=== PATIENT | female | born 1955 | race African-American/Black ===

== ENCOUNTER 2021-11-12 00:54 | Observation (INO) | payer OTHER ==
[2021-11-12 01:36] VITALS: BMI 27.1
[2021-11-12] MEDS ORDERED: Nitroglycerin 0.4 MG TAB (25 Tab Bottle) SL PRN (01:45)
[2021-11-12] MEDS ORDERED: Acetaminophen 325 MG TAB PO PRN (01:45)
[2021-11-12] MEDS ORDERED: Ondansetron PF 4 MG/2 ML Vial IVP PRN (01:45)
[2021-11-12] MEDS ORDERED: Dextrose 50% Abboject 50 ML SYRINGE SLOW IVP PRN (01:49)
[2021-11-12] MEDS ORDERED: HumaLOG 300 UNITS/3 ML VIAL SC PRN ×2 (01:49)
[2021-11-12] MEDS ORDERED: Dextrose 5% in Water 1,000 ML IV PRN (01:49)
[2021-11-12] MEDS ORDERED: Potassium Chloride 20 MEQ TAB PO SCH (02:00)
[2021-11-12] MEDS ORDERED: Aspirin 325 MG TAB PO SCH (02:00)
[2021-11-12] MEDS ORDERED: Diazepam 5 MG TAB PO PRN (02:04)
[2021-11-12] MEDS: HYDROcodone/Acetaminophen 10/325 mg Tablet PO PRN ×3 (02:13→14:38)
[2021-11-12 02:15] LABS: #Basophils 0.1 thou/uL (0.0-0.2); #Eosinphils 0.2 thou/uL (0.0-0.7); #Lymphocytes 2.6 thou/uL (1.20-3.40); #Monocytes 0.6 thou/uL (0.11-0.59); #Neutrophils 3.1 thou/uL (1.40-6.50); %Basophils 1.2 % (0.0-1.0); %Eosinophils 2.9 % (0.0-10.0); %Lymphocytes 39.5 % (21.0-51.0); %Monocytes 9.4 % (0.0-10.0); Hemoglobin 13.6 g/dL (12.0-16.0); Mean Corpuscular HGB CONC 33.4 g/dL (32.0-36.0); Mean Corpuscular Hemoglobin 31.8 pg (27.0-31.0); Mean Corpuscular Volume 95.3 fL (78.0-98.0); Mean Platelet Volume 7.4 fL (7.4-10.4); Platelet Count 362 thou/uL (130-400); RBC Distribution Width 13.5 % (11.5-14.5); Red Blood Cell (RBC) Count 4.28 mill/uL (4.20-5.40); White Blood Cell (WBC) Count 6.5 thou/uL (4.8-10.8)
[2021-11-12 02:39] LABS: Troponin I Less than 0.010 ng/mL (< 0.028)
[2021-11-12 02:54] LABS: Hemoglobin A1c 5.8 % (4.0-6.0)
[2021-11-12 03:04] LABS: Anion Gap 14 mmol/L (10-20); BUN (Urea Nitrogen) 23 mg/dL (9.8-20.1); Calc. Creatinine Clearance 97 mL/min (70-130); Carbon Dioxide 27 mmol/L (23-31); Chloride 102 mmol/L (98-107); Glucose 91 mg/dL (80-115); Magnesium 1.7 mg/dL (1.6-2.6); Potassium 3.3 mmol/L (3.5-5.1); Sodium 140 mmol/L (136-145)
[2021-11-12 05:15] LABS: Cardiac Risk 2.4 (Less than 4.5); Troponin I Less than 0.010 ng/mL (< 0.028)
[2021-11-12] MEDS ORDERED: Amlodipine 10 MG TAB PO SCH (09:00)
[2021-11-12] MEDS ORDERED: Carvedilol 6.25 MG TAB PO SCH (09:00)
[2021-11-12] MEDS ORDERED: Lisinopril 20 MG TAB PO SCH (09:00)
[2021-11-12] MEDS ORDERED: ADENOSINE 60 MG/20 ML VIAL ONE (09:54)
[2021-11-12 11:37] VITALS: BP 114/76; TEMP 97.8
[2021-11-15] MEDS ORDERED: FLU VACC QS2021-22(6MOS UP)/PF 60 MCG/0.5 ML SYRINGE IM ONE (09:00)
== END 2021-11-12 14:52 | disposition home or self-care (01) ==
LOC: 2SW 00:55
PROVIDERS: ADMIT Internal Medicine; ATTEND Internal Medicine
DX: R07.89 Other chest pain (principal); I10 Essential (primary) hypertension; E11.9 Type 2 diabetes mellitus without complications; F17.210 Nicotine dependence, cigarettes, uncomplicated; G89.29 Other chronic pain; M54.50 Low back pain, unspecified; Z79.84 Long term (current) use of oral hypoglycemic drugs; Z79.899 Other long term (current) drug therapy; Z88.0 Allergy status to penicillin; Z88.1 Allergy status to other antibiotic agents
CPT/HCPCS: 36415; 78452; 80048; 80061; 83036; 83735; 84484; 85025; 85379; 93005; 93010; 93017; A9500; G0378; J0153